=== PATIENT | female | born 1945 | race Caucasian/White ===

== ENCOUNTER → 2023-07-09 13:43 | Outpatient (REF) | payer MEDICARE, SELFPAY | LOC: RAD 13:43 | PROVIDERS: ATTENDING PHYSICIAN Nurse Practitioner Family; FAMILY PHYSICIAN Internal Medicine Geriatric Medicine | DX: E04.1 Nontoxic single thyroid nodule (principal) | CPT/HCPCS: 76536 ==

== ENCOUNTER → 2023-08-20 12:13 | Outpatient (REF) | payer MEDICARE, SELFPAY | LOC: CPAP 12:13 | PROVIDERS: ATTENDING PHYSICIAN Nurse Practitioner Family | DX: J02.9 Acute pharyngitis, unspecified (principal) | CPT/HCPCS: 87070 ==

== ENCOUNTER 2023-09-12 10:37 | Emergency (ER) | payer MEDICARE, SELFPAY ==
[2023-09-12 10:46] VITALS: BP 146/90
[2023-09-12] MEDS: ADACEL 0.5 ML IM (11:40)
[2023-09-12] MEDS: AUGMENTIN 875 MG/125 MG 1 TABLET PO (11:42)
--- NOTE | 2023-09-12 13:16 | ED.GENMED ---
History of Present Illness
<BIBIANA Michaels - Last Filed: 09/12/23 15:59>
General
Chief Complaint: Skin Surface Trauma
Source: patient
Exam Limitations: none
Time Seen by Provider: 09/12/23 10:56
Nursing documentation reviewed up to this point in time: agreed with
History of Present Illness
History of Present Illness:
Patient is a 78-year-old female who tripped walking outside of her porch and fell into a fisher sustaining lacerations to her right forearm. She is unsure of her last tetanus. She denies hitting her head.
Past History
<BIBIANA Michaels - Last Filed: 09/12/23 15:59>
Past History
ED Past Medical History: Psychiatric (Depression) and Other (History of back pain, although remote, history of multinodular goiter)
ED Past Surgical History: Orthopedic (Bilateral carpal tunnel release)
Social History
Personal:
Living: with family
Employment: Retired
Review of Systems
<BIBIANA Michaels - Last Filed: 09/12/23 15:59>
Review of Systems
Allergies reviewed?: Yes
All Other Systems: ROS reviewed and negative except as documented in HPI and ROS
Constitutional: Reports no symptoms
Musculoskeletal: Reports other (Laceration to right forearm)
Skin: Reports other (See above)
Neurological: Reports no symptoms
Psychiatric: Reports no symptoms
Phy Exam
<BIBIANA Michaels - Last Filed: 09/12/23 15:59>
General Physical Exam
General Presentation: no apparent distress
General age: appears stated age
General Skin: warm and dry
General Habitus: normal
General Mental: alert
General Hydration: appears well hydrated
Neurological Exam
Neurological Exam: alert and oriented x3
Musculoskeletal Exam
Musculoskeletal Exam: other (Right upper EXTR strong pulses patient with approximately 10 cm full-thickness laceration to forearm tendon visible but no laceration. In addition patient has approximately 4 cm distal laceration through to subcutaneous
tissue only)
Skin Exam
Skin Exam: normal color and warm/dry
Psychiatric Exam
Psychiatric Exam: normal mood/affect
Course
<BIBIANA Michaels - Last Filed: 09/12/23 15:59>
Orders/Labs/Results
Orders:
Orders
09/12/23 11:32
Tetanus/Diphth/Acelpertussis [Adacel] 0.5 ml IM .ONCE ONE
09/12/23 11:34
Cephalexin Monohydrate [Keflex] 500 mg PO NOW STA
09/12/23 11:38
Amoxicillin 875 mg/Clav 125 mg [Augmentin 875 mg/125 mg] 1 tablet PO NOW STA
Vital Signs
Initial and Last Documented VS:
Initial Vital Signs
Temp Pulse Resp BP Pulse Ox
99.2 F 75 16 146/90 98
09/12/23 10:46 09/12/23 10:46 09/12/23 10:46 09/12/23 10:46 09/12/23 10:46
Last Documented Vital Signs
Temp Pulse Resp BP Pulse Ox
99.2 F 75 16 146/90 98
09/12/23 10:46 09/12/23 10:46 09/12/23 10:46 09/12/23 10:46 09/12/23 10:46
<Shay Snyder DO - Last Filed: 09/12/23 13:26>
Orders/Labs/Results
Orders:
Orders
09/12/23 11:32
Tetanus/Diphth/Acelpertussis [Adacel] 0.5 ml IM .ONCE ONE
09/12/23 11:34
Cephalexin Monohydrate [Keflex] 500 mg PO NOW STA
09/12/23 11:38
Amoxicillin 875 mg/Clav 125 mg [Augmentin 875 mg/125 mg] 1 tablet PO NOW STA
Vital Signs
Initial and Last Documented VS:
Initial Vital Signs
Temp Pulse Resp BP Pulse Ox
99.2 F 75 16 146/90 98
09/12/23 10:46 09/12/23 10:46 09/12/23 10:46 09/12/23 10:46 09/12/23 10:46
Last Documented Vital Signs
Temp Pulse Resp BP Pulse Ox
99.2 F 75 16 146/90 98
09/12/23 10:46 09/12/23 10:46 09/12/23 10:46 09/12/23 10:46 09/12/23 10:46
Procedures
<BIBIANA Michaels - Last Filed: 09/12/23 15:59>
Laceration Closure
Right Arm:
Status of Wound: dirty
Size of Wound in cm: 10
Description of Wound Edges: sharp
Preparation: cleaned with saline, cleaned with Betadine and other
Anesthesia: 1% Lidocaine with epi
Revision/Debridement: routine- no revision and irrigate-direct pressure
Wound exploration: extensive cleaning of contaminated wound and with tx- contaminated (Tendon visible no laceration)
Type of Closure: single layer closure and interrupted sutures
Skin Closure Material: 4-0 nylon
Number of sutures: 10
Additional information:
Additional distal laceration approximately 4 cm as documented sutured with 4-0 nylon simple suturing interrupted
<BIBIANA Michaels - Last Filed: 09/12/23 15:59>
MDM/Problems Addressed
Differential Diagnosis Includes:
Not limited to laceration tendon injury
MDM/Problems Addressed:
Laceration was irrigated copious amounts of normal saline. With dirty debris patient fell into a fisher wound was irrigated as well as gently scrubbed. Patient was given Augmentin here in the ER and updated tetanus. Patient was sutured as
documented. Tendon is visible however there is no tendon deficit normal neurological function strong distal pulses normal cap refill normal sensation full range of motion to hand fingers wrist.
Wound care reviewed. Will send prescription to Augmentin from pharmacy. Patient was educated on risks of infection wound care. Any point follow-up.
<BIBIANA Michaels - Last Filed: 09/12/23 15:59>
*Critical Care Note
Total Time (30-74mins, 75-104mins- exclusive of procedures): Not Applicable
ED Attending Note
<BIBIANA Micheals - Last Filed: 09/12/23 15:59>
-
Portions of this chart may have been created with voice recognition software.� Occasional wrong word or��sound alike� substitutions may have occurred due to the inherent limitations of voice recognition software.
<Shay Snyder DO - Last Filed: 09/12/23 13:26>
ED Attending Note
Patient seen and examined by attending physician: Yes
I performed the substantive portion of visit, reviewed & personally made and approve the management plan that is documented in note by myself or JAD.: Yes
ED Attending Note:
I have seen and evaluated the patient with a [id number] encounter. I have spoken to the advance practicer provider and involved in the medical history, the physical exam, medical decision making.
Evaluation and management service: agree unless noted differently below.
Results interpretation: agree unless noted differently below.
Focused HPI: 78-year-old female presenting with 2 lacerations to her right arm after falling into a box with a tree. She denies numbness or tingling or trouble moving her hands or wrist
Physical exam: Large laceration to right forearm with exposed muscle. Fascia is intact. Smaller less right hand. Muscle strength and sensation grossly intact. No evidence of ligamentous or muscle involvement
Medical Decision Making: Will update tetanus. The lacerations were sutured. Will start Augmentin
Discharge Plan
Departure
Patient Disposition: Home (Routine Discharge)
Date of Disposition: 09/12/23
Time of Disposition: 13:20
Patient with high blood pressure during this ER visit?: Yes
Covid-19: Not Applicable
Discharge Problem:
Laceration
Instructions: Laceration Repair With Stitches (DC)
Prescriptions:
New
amoxicillin-pot clavulanate 875-125 mg tablet
1 tab PO BID Qty: 10 0RF
No Action
amitriptyline 50 MG tablet
50 mg PO DAILY
lorazepam 1 MG tablet
1 mg PO HS PRN (Reason: sleep)
calcium citrate 200 MG tablet
400 mg PO BID
coenzyme Q10 [Co Q-10] 100 MG capsule
100 mg PO DAILY
docosahexaenoic acid-epa 1 CAP capsule
1 cap PO DAILY
azithromycin [AzaSite] 2.5 ML drops
1 drp BOTH EYES DAILY
denosumab [Prolia] 60 MG/ML syringe
60 mg SC WEEKLY
loteprednol etabonate [Lotemax] 3.5 GM ointment
1 applic BOTH EYES DAILY
uifkezghlio-R0-Dtvwczeec serr [Osteo Bi-Flex (5-Loxin)] 1 EACH tablet
1 ea PO BID
vitamins [id number] [B-Complex With B-12] 1 EACH tablet
1 tab PO DAILY
lifitegrast [Xiidra] 1 EACH dropperette
1 drp BOTH EYES DAILY PRN (Reason: dry eye)
magnesium citrate 125 MG capsule
250 mg PO DAILY
Lactobac. rhamnosus GG-inulin [[facility]] 1 EACH capsule
1 ea PO DAILY
doxycycline hyclate 100 mg capsule
100 mg PO BID Qty: 14 0RF
Referrals:
Rocky Wakefield MD [Family Provider] -
Activity Restrictions/Additional Instructions:
Keep wound clean and dry for 24 hours after 24 hours wash twice a day with soap and water pat dry and apply small layer of antibiotic ointment to the area. Keep covered as discussed. See family doctor in the next 2 days as needed for wound check
and sutures are to be removed in 10-12 days. Return if any signs of infection of increased pain swelling redness drainage fever chills. A prescription for Augmentin was sent to your pharmacy. Take as directed. You are given first dose here in
the ER please take additional dose later this evening or before bed.
Take Augmentin for the next 5 days to prevent infection
Interventions
Interventions:
*Nursing Disposition Last Done: 09/12/23 13:56
ED-Skin Assessment Last Done: 09/12/23 13:05
Discharge Date and Time
Discharge Date/Time: 09/12/23 13:56
Print Language: HUNGARIAN
== END 2023-09-12 13:56 | disposition home or self-care (01) ==
LOC: EMR 10:37
PROVIDERS: EMERGENCY PHYSICIAN Student in an Organized Health Care Education/Training Program; FAMILY PHYSICIAN Internal Medicine Geriatric Medicine
DX: S51.811A Laceration without foreign body of right forearm, initial encounter (principal); W18.30XA Fall on same level, unspecified, initial encounter; Z23 Encounter for immunization
CPT/HCPCS: 99282; 12001; 90471; 90715

== ENCOUNTER → 2023-09-14 12:28 | Outpatient (REF) | payer MEDICARE, SELFPAY | LOC: RAD 12:28 | PROVIDERS: ATTENDING PHYSICIAN Nurse Practitioner Family | DX: S51.811A Laceration without foreign body of right forearm, initial encounter (principal); T14.8XXA Other injury of unspecified body region, initial encounter; M79.631 Pain in right forearm | CPT/HCPCS: 93971 ==

== ENCOUNTER → 2023-09-28 15:03 | Outpatient (REF) | payer MEDICARE, SELFPAY | LOC: WDC 15:03 | PROVIDERS: ATTENDING PHYSICIAN Nurse Practitioner Family | DX: Z12.31 Encounter for screening mammogram for malignant neoplasm of breast (principal) | CPT/HCPCS: 77063; 77067 ==

== ENCOUNTER → 2023-10-02 09:04 | Outpatient (REF) | payer MEDICARE, SELFPAY ==
[2023-10-02 11:25] LABS: % Basophils 1.2 % (0-2); % Eosinophils 1.2 % (0-6); % Immature Granulocytes 0.3 % (0-0.5); % Lymphocytes 31.5 % (20.5-51.1); % Monocytes 13.7 % (1.7-9.3); % Neutrophils 52.1 % (42.2-75.2); Absolute Lymphocytes 1.1 10^3/uL (1.2-3.4); Absolute Monocytes 0.5 10^3/uL (0.1-0.6); Absolute Neutrophils 1.8 10^3/uL (1.4-6.5); Hematocrit 39.9 % (37.0-47.0); Hemoglobin 13.8 g/dL (12.0-16.0); Mean Corp Hgb Conc. 34.6 g/dL (33.0-37.0); Mean Corpuscular Hgb 32.6 pg (27.0-31.0); Mean Corpuscular Volume 94.3 fL (81.0-99.0); Nucleated Red Blood Cells % 0 %; Platelet Count 224 10^3/uL (130-400); Red Blood Cell Count 4.23 10^6/uL (4.20-5.40); White Blood Cell Count 3.4 10^3/uL (4.8-10.8)
[2023-10-02 11:38] LABS: ALT (SGPT) 16 U/L (0-35); AST (SGOT) 23 U/L (14-36); Albumin 4.3 g/dl (3.5-5.0); Alkaline Phosphatase 56 U/L (38-126); Blood Urea Nitrogen 16 mg/dl (7-17); Calcium 8.8 mg/dl (8.4-10.2); Carbon Dioxide 29 mmol/L (22-30); Chloride 99 mmol/L (98-107); Glucose 115 mg/dl (70-99); Potassium 4.7 mmol/L (3.5-5.1); Sodium 135 mmol/L (135-145); Total Bilirubin 0.7 mg/dl (0.2-1.3); Total Protein 6.7 g/dl (6.3-8.2); eGFR > 60.00
[2023-10-03 11:24] LABS: Glycohemoglobin (HgbA1c) 5.1 % (4.0-5.6)
== END ==
LOC: REG 09:04
PROVIDERS: ATTENDING PHYSICIAN Nurse Practitioner Family; FAMILY PHYSICIAN Internal Medicine Geriatric Medicine; REFERRING PHYSICIAN Internal Medicine Rheumatology
DX: R73.01 Impaired fasting glucose (principal); A69.23 Arthritis due to Lyme disease; M15.0 Primary generalized (osteo)arthritis; M48.04 Spinal stenosis, thoracic region; M81.0 Age-related osteoporosis without current pathological fracture; R29.890 Loss of height; Z51.81 Encounter for therapeutic drug level monitoring
CPT/HCPCS: 36415; 80053; 83036; 85025

== ENCOUNTER → 2023-11-09 09:29 | Outpatient (REF) | payer MEDICARE, SELFPAY ==
[2023-11-09 10:11] LABS: % Basophils 0.9 % (0-2); % Eosinophils 0.7 % (0-6); % Immature Granulocytes 0.2 % (0-0.5); % Monocytes 12.4 % (1.7-9.3); % Neutrophils 61.8 % (42.2-75.2); Absolute Monocytes 0.5 10^3/uL (0.1-0.6); Absolute Neutrophils 2.7 10^3/uL (1.4-6.5); Hemoglobin 13.6 g/dL (12.0-16.0); Mean Corp Hgb Conc. 34.9 g/dL (33.0-37.0); Mean Corpuscular Hgb 32.8 pg (27.0-31.0); Mean Platelet Volume 9.3 fL (7.4-10.4); Nucleated Red Blood Cells % 0 %; Platelet Count 194 10^3/uL (130-400); Red Blood Cell Count 4.15 10^6/uL (4.20-5.40); Red Cell Dist. Width 13.3 % (11.5-14.5); White Blood Cell Count 4.3 10^3/uL (4.8-10.8)
[2023-11-09 10:53] LABS: ALT (SGPT) 14 U/L (0-35); AST (SGOT) 22 U/L (14-36); Albumin 4.3 g/dl (3.5-5.0); Alkaline Phosphatase 60 U/L (38-126); Blood Urea Nitrogen 15 mg/dl (7-17); Calcium 8.9 mg/dl (8.4-10.2); Carbon Dioxide 31 mmol/L (22-30); Chloride 100 mmol/L (98-107); Glucose 119 mg/dl (70-99); Potassium 4.4 mmol/L (3.5-5.1); Sodium 137 mmol/L (135-145); Total Bilirubin 0.8 mg/dl (0.2-1.3); Total Cholesterol 246 mg/dl (50-199); Total Protein 6.7 g/dl (6.3-8.2); Triglyceride 53 mg/dl (10-149); Very Low Density Lipoprotein 10 mg/dl (0-30); eGFR > 60.00
[2023-11-09 11:25] LABS: HDL Cholesterol 130 mg/dl; LDL Cholesterol, Calculated 106 mg/dl
[2023-11-09 12:08] LABS: TSH Reflex To Free T4 1.21 uIU/ml (0.47-4.68)
[2023-11-09 12:14] LABS: Urine Albumin Negative (Neg - Trace); Urine Bilirubin Negative (Negative); Urine Character Clear (Clear); Urine Color Yellow; Urine Glucose Negative (Negative); Urine Ketone Negative (Negative); Urine Leukocyte Negative (Negative); Urine Nitrite Negative (Negative); Urine Occult Blood Negative (Negative); Urine Specific Gravity 1.005 (<1.030); Urine Urobilinogen Negative (Neg - 1+)
[2023-11-09 12:43] LABS: Folate > 20.0 ng/ml (2.76-20); Vitamin B12 692 pg/ml (239-931)
== END ==
LOC: REG 09:29
PROVIDERS: ATTENDING PHYSICIAN Internal Medicine Geriatric Medicine
DX: K13.0 Diseases of lips (principal); K13.79 Other lesions of oral mucosa; H04.123 Dry eye syndrome of bilateral lacrimal glands; Z86.19 Personal history of other infectious and parasitic diseases; R03.0 Elevated blood-pressure reading, without diagnosis of hypertension; Z01.89 Encounter for other specified special examinations; E78.5 Hyperlipidemia, unspecified; D51.9 Vitamin B12 deficiency anemia, unspecified
CPT/HCPCS: 36415; 80053; 80061; 81003; 82607; 82746; 84443; 85025

== ENCOUNTER → 2023-12-24 13:57 | Outpatient (REF) | payer MEDICARE, SELFPAY ==
[2023-12-24 15:35] LABS: Vitamin D, 25-OH*** 46.4 ng/mL (30-80)
[2023-12-24 15:48] LABS: TSH Reflex To Free T4 1.53 uIU/ml (0.47-4.68)
[2023-12-27 01:50] LABS: SSA 52 (Ro)(ENA) Ab, IgG 13 AU/mL (0-40); SSA 60 (Ro)(ENA) Ab, IgG 0 AU/mL (0-40); SSB (La)(ENA) Ab, IgG 3 AU/mL (0-40)
== END ==
LOC: REG 13:57
PROVIDERS: ATTENDING PHYSICIAN Nurse Practitioner Primary Care; FAMILY PHYSICIAN Internal Medicine Geriatric Medicine
DX: R68.2 Dry mouth, unspecified (principal); M81.0 Age-related osteoporosis without current pathological fracture; E04.1 Nontoxic single thyroid nodule
CPT/HCPCS: 36415; 82306; 84443; 86235

== ENCOUNTER → 2024-01-18 09:15 | Outpatient (REF) | payer MEDICARE, SELFPAY | LOC: RAD 09:15 | PROVIDERS: ATTENDING PHYSICIAN Nurse Practitioner Primary Care | DX: E04.1 Nontoxic single thyroid nodule (principal) | CPT/HCPCS: 76536 ==

== ENCOUNTER → 2024-02-15 10:01 | Outpatient (REF) | payer MEDICARE, SELFPAY ==
[2024-02-15 11:35] LABS: % Basophils 0.6 % (0-2); % Eosinophils 0.6 % (0-6); % Immature Granulocytes 0.4 % (0-0.5); % Lymphocytes 19.1 % (20.5-51.1); % Monocytes 8.8 % (1.7-9.3); % Neutrophils 70.5 % (42.2-75.2); Absolute Monocytes 0.5 10^3/uL (0.1-0.6); Absolute Neutrophils 3.6 10^3/uL (1.4-6.5); Hematocrit 45.8 % (37.0-47.0); Hemoglobin 15.4 g/dL (12.0-16.0); Mean Corp Hgb Conc. 33.6 g/dL (33.0-37.0); Mean Corpuscular Hgb 32.2 pg (27.0-31.0); Mean Corpuscular Volume 95.8 fL (81.0-99.0); Mean Platelet Volume 9.7 fL (7.4-10.4); Nucleated Red Blood Cells % 0 %; Platelet Count 227 10^3/uL (130-400); Red Blood Cell Count 4.78 10^6/uL (4.20-5.40); Red Cell Dist. Width 13.2 % (11.5-14.5); White Blood Cell Count 5.1 10^3/uL (4.8-10.8)
[2024-02-15 11:57] LABS: Erythrocyte Sed Rate 10 mm/hour (0-20)
[2024-02-15 12:25] LABS: IgA 178 mg/dl (70-400); IgG 907 mg/dl (700-1600); IgM 133 mg/dl (40-230)
[2024-02-15 13:21] LABS: Rheumatoid Agglutinin Less Than 10 IU (<10 IU)
[2024-02-18 01:30] LABS: ANA, IgG Reflex to HEp-2 None Detected (None Detected)
== END ==
LOC: REG 10:01
PROVIDERS: ATTENDING PHYSICIAN Nurse Practitioner Primary Care; FAMILY PHYSICIAN Internal Medicine Geriatric Medicine
DX: R68.2 Dry mouth, unspecified (principal); H04.123 Dry eye syndrome of bilateral lacrimal glands; B99.9 Unspecified infectious disease; M25.50 Pain in unspecified joint
CPT/HCPCS: 36415; 82784; 85025; 85652; 86038; 86140; 86430

== ENCOUNTER → 2024-04-29 09:40 | Outpatient (REF) | payer MEDICARE, SELFPAY ==
[2024-04-29 11:26] LABS: % Basophils 0.9 % (0-2); % Eosinophils 1.8 % (0-6); % Monocytes 12.7 % (1.7-9.3); % Neutrophils 56.6 % (42.2-75.2); Absolute Eosinophils 0.1 10^3/uL (0-0.7); Absolute Monocytes 0.4 10^3/uL (0.1-0.6); Absolute Neutrophils 1.9 10^3/uL (1.4-6.5); Hematocrit 42.2 % (37.0-47.0); Hemoglobin 14.4 g/dL (12.0-16.0); Mean Corp Hgb Conc. 34.1 g/dL (33.0-37.0); Mean Corpuscular Hgb 31.6 pg (27.0-31.0); Mean Corpuscular Volume 92.7 fL (81.0-99.0); Mean Platelet Volume 9.4 fL (7.4-10.4); Nucleated Red Blood Cells % 0 %; Platelet Count 227 10^3/uL (130-400); Red Blood Cell Count 4.55 10^6/uL (4.20-5.40); Red Cell Dist. Width 13.1 % (11.5-14.5); White Blood Cell Count 3.4 10^3/uL (4.8-10.8)
[2024-04-29 11:51] LABS: ALT (SGPT) 18 U/L (0-35); AST (SGOT) 24 U/L (14-36); Albumin 4.4 g/dl (3.5-5.0); Alkaline Phosphatase 56 U/L (38-126); Blood Urea Nitrogen 12 mg/dl (7-17); Calcium 9.1 mg/dl (8.4-10.2); Carbon Dioxide 29 mmol/L (22-30); Chloride 97 mmol/L (98-107); Glucose 96 mg/dl (70-99); Potassium 4.4 mmol/L (3.5-5.1); Sodium 131 mmol/L (135-145); Total Bilirubin 0.9 mg/dl (0.2-1.3); Total Protein 6.9 g/dl (6.3-8.2); eGFR > 60.00
== END ==
LOC: REG 09:40
PROVIDERS: ATTENDING PHYSICIAN Internal Medicine Rheumatology; FAMILY PHYSICIAN Internal Medicine Geriatric Medicine
DX: A69.23 Arthritis due to Lyme disease (principal); M15.0 Primary generalized (osteo)arthritis; M48.04 Spinal stenosis, thoracic region; M81.0 Age-related osteoporosis without current pathological fracture; R29.890 Loss of height; Z51.81 Encounter for therapeutic drug level monitoring
CPT/HCPCS: 36415; 80053; 85025

== ENCOUNTER → 2024-07-14 10:04 | Outpatient (REF) | payer MEDICARE, SELFPAY ==
[2024-07-14 11:39] LABS: Blood Urea Nitrogen 15 mg/dl (7-17); Calcium 9.1 mg/dl (8.4-10.2); Carbon Dioxide 29 mmol/L (22-30); Chloride 101 mmol/L (98-107); Glucose 125 mg/dl (70-99); Potassium 4.7 mmol/L (3.5-5.1); Sodium 137 mmol/L (135-145); Total Cholesterol 245 mg/dl (50-199); Triglyceride 44 mg/dl (10-149); Very Low Density Lipoprotein 8 mg/dl (0-30); eGFR > 60.00
[2024-07-14 11:51] LABS: HDL Cholesterol 132 mg/dl; LDL Cholesterol, Calculated 105 mg/dl
== END ==
LOC: REG 10:04
PROVIDERS: ATTENDING PHYSICIAN Nurse Practitioner Primary Care
DX: E78.2 Mixed hyperlipidemia (principal); R73.01 Impaired fasting glucose; D72.819 Decreased white blood cell count, unspecified
CPT/HCPCS: 36415; 80048; 80061; 83036

== ENCOUNTER → 2024-09-13 10:31 | Outpatient (REF) | payer MEDICARE, SELFPAY | LOC: RAD 10:31 | PROVIDERS: ATTENDING PHYSICIAN Nurse Practitioner Primary Care; FAMILY PHYSICIAN Internal Medicine Geriatric Medicine | DX: E04.1 Nontoxic single thyroid nodule (principal) | CPT/HCPCS: 76536 ==

== ENCOUNTER → 2024-09-28 13:49 | Outpatient (REF) | payer MEDICARE, SELFPAY | LOC: WDC 13:49 | PROVIDERS: ATTENDING PHYSICIAN Nurse Practitioner Primary Care | DX: Z12.31 Encounter for screening mammogram for malignant neoplasm of breast (principal) | CPT/HCPCS: 77063; 77067 ==

== ENCOUNTER → 2024-10-13 09:15 | Outpatient (REF) | payer MEDICARE, SELFPAY | LOC: WDC 09:15 | PROVIDERS: ATTENDING PHYSICIAN Nurse Practitioner Primary Care | DX: R92.8 Other abnormal and inconclusive findings on diagnostic imaging of breast (principal) | CPT/HCPCS: 76642 ==

== ENCOUNTER → 2024-11-25 10:19 | Outpatient (REF) | payer MEDICARE, SELFPAY ==
[2024-11-25 18:18] LABS: Urine Character Clear (Clear)
== END ==
LOC: REG 10:19
PROVIDERS: ATTENDING PHYSICIAN Nurse Practitioner Family
DX: R30.0 Dysuria (principal); R39.9 Unspecified symptoms and signs involving the genitourinary system
CPT/HCPCS: 81003; 87086

== ENCOUNTER 2024-11-28 05:50 | Day surgery (SDC) | payer MEDICARE, SELFPAY ==
--- NOTE | 2024-11-01 14:11 | CM ---
Demographics: confirmed
Living situation: Lives with
Support Person Post Operatively: , encouraged to stay in hospital so patient can be discharged in time to meet with PT
History of
VN: None
SNF: None
Outpatien: [facility]
Has patient purchased required equipment: yes
PCP: Dr. Wakefield
Pharmacy: [facility]
Post Operative Discharge Plan: DIscharge with [facility] and transition to Outpatient PT.
[2024-11-08 13:55] LABS: Hematocrit 40.0 % (37.0-47.0); Hemoglobin 13.8 g/dL (12.0-16.0); Mean Corp Hgb Conc. 34.5 g/dL (33.0-37.0); Mean Corpuscular Volume 92.8 fL (81.0-99.0); Platelet Count 234 10^3/uL (130-400); Red Cell Dist. Width 13.0 % (11.5-14.5)
[2024-11-08 14:11] VITALS: BMI 24.1
[2024-11-08 14:13] LABS: ALT (SGPT) 16 U/L (0-35); AST (SGOT) 21 U/L (14-36); Albumin 4.7 g/dl (3.5-5.0); Alkaline Phosphatase 53 U/L (38-126); Blood Urea Nitrogen 14 mg/dl (7-17); Calcium 9.7 mg/dl (8.4-10.2); Carbon Dioxide 28 mmol/L (22-30); Chloride 98 mmol/L (98-107); Estimated Creatinine Clearance 70 ml/min; Glucose 94 mg/dl (70-99); Potassium 4.4 mmol/L (3.5-5.1); Sodium 131 mmol/L (135-145); Total Protein 7.2 g/dl (6.3-8.2); eGFR > 60.00
[2024-11-08 14:43] LABS: Glycohemoglobin (HgbA1c) 5.0 % (4.0-5.6)
--- NOTE | 2024-11-08 15:36 | W.SUR.PREOP ---
Pre-Operative Surgical Note
-
Na+ 131-mildly low--LM to decrease free H20 and add salt to diet--changed shyla-operative IVF to NSS in lieu of Normosol
[2024-11-08 16:06] VITALS: BMI 24.1
--- NOTE | 2024-11-15 10:28 | VNURNOTE ---
Patient is scheduled for an elective L TKA on 11/28 - she is a same day patient with Dr Al. Spoke with patient prior to surgery. Introduced role of [facility] Liaison. Patient reports that she lives with her spouse
She has a rolling walker.
PCP is Dr Wakefield
Discussed [facility] joint protocol and post surgical plans.
Reviewed that she will have VN services initially and will then start outpatient PT.
Patient selects [facility] for home care needs and will go to [facility] for outpatient PT. Scheduled for 12/02 .
Patient is in agreement with plan and states that her spouse will be home with her. Advised to bring RW with her day of surgery. Referral placed in [facility].
Plan: [facility] per [facility] joint protocol 11/28 then outpt PT on 11/29
[2024-11-28] VITALS (14 sets, daily range): BP systolic 108–174; BP diastolic 76–99; PULSE 88; O2SAT 94; BMI 24.1
[2024-11-28] MEDS: TYLENOL 650 MG PO (06:33)
[2024-11-28] MEDS: MOBIC 15 MG PO (06:33)
[2024-11-28] MEDS: NSS 1000 IV (06:34)
--- NOTE | 2024-11-28 08:54 | W.DS.TRANS ---
DC Summary - Supervisor Claims
-
Discharge Instructions:
Sleep Apnea Risk Low
Discharge Diagnosis/Procedures L TKA Dr Al 11/28/24
Diet As tolerated
Activity With Walker
Driving Restrictions No driving
Bathing Restrictions OK to Shower
Other Services PT
Instructions:
Stand-Alone Forms: SDS Total Hip and Knee D/C
Changes to Home Medications: Yes
Discharge Medications:
DC Medications w/original date entered in [employer]
Lactobacillus rhamnosus GG 10 billion cell-inulin 200 mg capsule ([employer]) 1 ea PO DAILY 08/04/18
amitriptyline 50 mg tablet 75 mg PO HS 08/04/18
calcium citrate 400 mg PO DAILY 08/04/18
coenzyme Q10 100 mg capsule (Co Q-10) 100 mg PO DAILY 08/04/18
Held on 11/28/24. Instructions: Resume on 12/06/24.
denosumab 60 mg/mL subcutaneous syringe (Prolia) 60 mg SC [id number] 08/04/18
glucosamine [id number]-I5-[id number] benji 1,500 mg-400 unit-100 mg tablet (Osteo Bi-Flex (5-Loxin)) 1 ea PO BID 08/04/18
Held on 11/28/24. Instructions: Resume on 12/06/24.
lifitegrast 5 % eye drops in a dropperette (Xiidra) 1 drp BOTH EYES BID 08/04/18
lorazepam 1 mg tablet 1 mg PO HS PRN sleep 08/04/18
magnesium citrate 125 mg capsule 250 mg PO DAILY 08/04/18
vitamins B1 2.5 mg-B2 2.5 mg-niacin 5 mg-B12 100 mcg-protease tablet (B-Complex With B-12) 1 tab PO DAILY 08/04/18
Fish Oil 3 tab PO DAILY 11/07/24
Held on 11/28/24. Instructions: Resume on 12/06/24.
Qunol Turmeric 1,500 mg PO BID 11/07/24
Held on 11/28/24. Instructions: Resume on 12/06/24.
gabapentin 400 mg tablet 400 mg PO BID 11/07/24
melatonin 5 mg tablet 5 mg PO HS PRN insomnia 11/07/24
mupirocin 2 % topical ointment 1 applic topical BID infection prevention #1 tube 11/07/24
perfluorohexyloctane (PF) 100 % eye drops (Miebo (PF)) 1 drp ophthalmic (eye) TID 11/07/24
zinc 50 mg tablet 50 mg PO DAILY 11/07/24
dexamethasone 4 mg tablet 4 mg PO BID inflammation #6 tabs 11/08/24
famotidine 20 mg tablet 20 mg PO HS GI prophylaxis #30 tabs 11/08/24
meloxicam 15 mg tablet 15 mg PO DAILY anti-inflammatory #14 tabs 11/08/24
ondansetron 4 mg disintegrating tablet 4 mg PO Q6H PRN n/v #20 tabs 11/08/24
oxycodone 5 mg tablet 5 mg PO Q6H PRN 1 tab moderate pain, 2 tabs severe pain #30 tabs 11/08/24
aspirin 325 mg tablet 325 mg PO DAILY blood clot prevention #1 tab 11/28/24
docusate sodium 100 mg capsule (Colace) 100 mg PO BID stool softner #1 cap 11/28/24
magnesium hydroxide 400 mg/5 mL oral suspension (Milk of Magnesia) 30 ml PO HS PRN constipation #1 mL 11/28/24
sennosides 8.6 mg tablet (Senokot) 17.2 mg (2 x 8.6 mg) PO BID laxative #2 tabs 11/28/24
Home Medication Changes
dexamethasone 4 mg tablet 4 mg PO BID inflammation #6 tabs 11/08/24
famotidine 20 mg tablet 20 mg PO HS GI prophylaxis #30 tabs 11/08/24
meloxicam 15 mg tablet 15 mg PO DAILY anti-inflammatory #14 tabs 11/08/24
ondansetron 4 mg disintegrating tablet 4 mg PO Q6H PRN n/v #20 tabs 11/08/24
oxycodone 5 mg tablet 5 mg PO Q6H PRN 1 tab moderate pain, 2 tabs severe pain #30 tabs 11/08/24
aspirin 325 mg tablet 325 mg PO DAILY blood clot prevention #1 tab 11/28/24
docusate sodium 100 mg capsule (Colace) 100 mg PO BID stool softner #1 cap 11/28/24
magnesium hydroxide 400 mg/5 mL oral suspension (Milk of Magnesia) 30 ml PO HS PRN constipation #1 mL 11/28/24
sennosides 8.6 mg tablet (Senokot) 17.2 mg (2 x 8.6 mg) PO BID laxative #2 tabs 11/28/24
Pending Results: Yes
[2024-11-28] MEDS: NORMOSOL-R/PLASMALYTE-A 1000 IV (10:10)
[2024-11-28] MEDS: ANCEF 5 IV (11:26)
== END 2024-11-28 12:25 | disposition home or self-care (01) ==
LOC: SDS 05:50
PROVIDERS: ATTENDING PHYSICIAN Specialist; FAMILY PHYSICIAN Internal Medicine Geriatric Medicine; OTHER PHYSICIAN Physician Assistant Medical
DX: M17.12 Unilateral primary osteoarthritis, left knee (principal)
CPT/HCPCS: 27447; C1776; 36415; 73560; 80053; 83036; 85027; 87070; 93005; 97116; 97162; C1713

== ENCOUNTER → 2025-03-14 17:39 | Outpatient (REF) | payer MEDICARE, SELFPAY | LOC: PAVMRI 17:39 | PROVIDERS: ATTENDING PHYSICIAN Pain Medicine Interventional Pain Medicine; FAMILY PHYSICIAN Internal Medicine Geriatric Medicine | DX: M54.16 Radiculopathy, lumbar region (principal) | CPT/HCPCS: 72148 ==